=== PATIENT | male | born 1995 | race Caucasian/White ===

== ENCOUNTER 2017-02-14 15:34 | Emergency (ER) | payer OTHER ==
[~2017-02-14] VITALS: Ht 180.3 cm; Wt 90.0 kg
[2017-02-14] MEDS ORDERED: NORCO, ANEXSIA 5/325MG TABLET (HYDROcodone/ACETAMINOPHEN) PO ONE (17:15)
[2017-02-14 17:34] VITALS: BP 142/71
[2017-02-14] MEDS ORDERED: NAPR500T PO (18:04)
--- NOTE | 2017-02-14 18:25 | REP ---
Right knee series: Five views. History: Trauma. Findings: Five views of the right knee demonstrate normal bones, joints, and soft tissues. No fracture, subluxation or joint effusion. Impression: Negative views of the right knee. Signed by Ezequiel Watts MD 02/14/2017 07:00 P
== END 2017-02-14 18:13 | disposition home or self-care (01) ==
LOC: M ED 16:55
DX: S83.411A Sprain of medial collateral ligament of right knee, initial encounter (principal); X50.3XXA Overexertion from repetitive movements, initial encounter; Y92.39 Other specified sports and athletic area as the place of occurrence of the external cause; Y93.B9 Activity, other involving muscle strengthening exercises; Y99.1 Military activity; F17.210 Nicotine dependence, cigarettes, uncomplicated

== ENCOUNTER 2017-06-03 16:45 | Emergency (ER) | payer OTHER ==
[~2017-06-03] VITALS: Ht 180.3 cm; Wt 91.8 kg
[~2017-06-03 16:45] MED LIST: NAPR500T PO
--- NOTE | 2017-06-03 20:00 | REPUSA ---
Clinical history: Pain. Findings: Real-time ultrasound imaging of the testicles and scrotum was performed. The right testicle measures 5.6 x 2.6 x 3.9 cm. The left testicle measures 5.4 x 2.7 x 3.8 cm. The testicles demonstrat e normal echo texture and echogenicity. Normal color Doppler flow and arterial waveforms are seen rodrigo aterally. There is a cyst in the left epididymis measuring 2 mm. No fluid collections are seen. Impression: Unremarkable ultrasound examination of the testicles.
[2017-06-03 20:08] VITALS: BP 117/86
== END 2017-06-03 20:47 | disposition home or self-care (01) ==
LOC: M ED 16:45
DX: N50.811 Right testicular pain (principal); Z87.891 Personal history of nicotine dependence

== ENCOUNTER → 2017-06-10 | Outpatient (REF) | payer OTHER ==
[2017-06-10 15:05] LABS: % NORMAL FORMS 14 % (>=4); IMMOTILITY 39 %; NON PROGRESSIVE MOTILITY (c) 6 %; PROGRESSIVE MOTILITY (a) 55 % (>=32); SPERM# 181.9 M/Ejac (>=39); TOTAL FUNCTIONAL 30.2 M/Ejac.; TOTAL MOTILITY 61 % (>=40); TOTAL PROGRESSIVE SPERM 100.8 M/Ejac.
== END ==
LOC: M LAB REF 14:52
PROVIDERS: ATTEND Physician Assistant
DX: N46.9 Male infertility, unspecified (principal)